=== PATIENT | female | born 1990 | race African-American/Black ===

== ENCOUNTER 2019-01-30 11:06 | Emergency (ER) | payer OTHER ==
[~2019-01-30] VITALS: Ht 162.6 cm; Wt 83.0 kg
[2019-01-30] MEDS ORDERED: ONDANSETRON HCL 4MG/2ML INJ IV STA (12:03)
[2019-01-30] MEDS ORDERED: SODIUM CHLORIDE 0.9% 1,000 ML IV ONE (12:03)
[2019-01-30 12:28] LABS: BASOPHILS % 0.8 % (0.0-2.0); EOSINOPHILS % 0.8 % (0.0-5.0); HEMATOCRIT. 39.8 % (36.0-48.0); HEMOGLOBIN. 13.3 g/dL (12.0-16.0); LYMPHOCYTES % 41.2 % (20.0-50.0); MEAN CORPUSCULAR HEMOGLOBIN 26.8 pg (28.0-32.0); MEAN CORPUSCULAR VOLUME 80.2 fL (81.0-99.0); MEAN PLATELET VOLUME 9.4 fl (7.4-10.4); MONOCYTES % 7.7 % (2.0-8.0); NEUTROPHILS % 49.5 % (40.0-76.0); PLATELET 273 x1000/uL (130-400); RED BLOOD CELL COUNT 4.97 mill/uL (4.2-5.4); RED CELL DISTRIBUTION WIDTH 13.9 % (11.6-14.6)
[2019-01-30 12:32] LABS: CHLORIDE 106 mEq/L (98-107)
[2019-01-30 12:37] LABS: CLARITY URINE CLEAR (CLEAR); COLOR URINE YELLOW (YELLOW); KETONES URINE NEGATIVE (NEGATIVE); LEUKOCYTE ESTERASE URINE NEGATIVE (NEGATIVE); NITRITE URINE NEGATIVE (NEGATIVE); OCCULT BLOOD URINE NEGATIVE (NEGATIVE); PH URINE 6.5 (4.5-8.0); PROTEIN URINE NEGATIVE (NEGATIVE); SPECIFIC GRAVITY URINE 1.002 (1.005-1.030); UROBILINOGEN URINE 0.2 E.U./dL (0.2-1.0)
[2019-01-30 13:37] VITALS: BP 112/63
== END 2019-01-30 14:13 | disposition home or self-care (01) ==
LOC: ER 11:06
DX: R42 Dizziness and giddiness (principal); R07.89 Other chest pain; R06.02 Shortness of breath
CPT/HCPCS: 36415; 71045; 80053; 81003; 81025; 83690; 85025; 85379; 93005; 96361; 96374; 99284; J2405; J7030

== ENCOUNTER 2019-03-27 14:26 | Emergency (ER) | payer OTHER ==
[~2019-03-27] VITALS: Ht 162.6 cm; Wt 73.0 kg
[2019-03-27] MEDS ORDERED: SODIUM CHLORIDE 0.9% 1,000 ML IV ONE (17:09)
[2019-03-27 17:45] LABS: BASOPHILS % 1.5 % (0.0-2.0); EOSINOPHILS % 3.3 % (0.0-5.0); HEMATOCRIT. 40.7 % (36.0-48.0); HEMOGLOBIN. 13.6 g/dL (12.0-16.0); LYMPHOCYTES % 40.5 % (20.0-50.0); MEAN CORPUSCULAR HEMOGLOBIN 26.4 pg (28.0-32.0); MEAN CORPUSCULAR VOLUME 79.2 fL (81.0-99.0); MEAN PLATELET VOLUME 8.6 fl (7.4-10.4); MONOCYTES % 6.1 % (2.0-8.0); NEUTROPHILS % 48.6 % (40.0-76.0); PLATELET 279 x1000/uL (130-400); RED BLOOD CELL COUNT 5.14 mill/uL (4.2-5.4); RED CELL DISTRIBUTION WIDTH 14.4 % (11.6-14.6)
[2019-03-27 17:49] LABS: CHLORIDE 106 mEq/L (98-107)
[2019-03-27 17:53] LABS: ETHANOL BLOOD < 10 mg/dL
[2019-03-27 17:58] LABS: CLARITY URINE CLEAR (CLEAR); COLOR URINE YELLOW (YELLOW); KETONES URINE NEGATIVE (NEGATIVE); LEUKOCYTE ESTERASE URINE NEGATIVE (NEGATIVE); NITRITE URINE NEGATIVE (NEGATIVE); OCCULT BLOOD URINE NEGATIVE (NEGATIVE); PH URINE 5.5 (4.5-8.0); PROTEIN URINE NEGATIVE (NEGATIVE); SPECIFIC GRAVITY URINE 1.006 (1.005-1.030); UROBILINOGEN URINE 0.2 E.U./dL (0.2-1.0)
[2019-03-27 18:12] LABS: *COCAINE SCREEN URINE NEGATIVE (NEGATIVE)
[2019-03-27 18:13] LABS: *AMPHETAMINES SCREEN URINE NEGATIVE (NEGATIVE); *BARBITURATES SCREEN URINE NEGATIVE (NEGATIVE); *BENZODIAZEPINES SCREEN URINE NEGATIVE (NEGATIVE); CANNABINOID URINE SCREEN NEGATIVE (NEGATIVE); METHADONE URINE SCREEN NEGATIVE (NEGATIVE); OPIATES URINE SCREEN NEGATIVE (NEGATIVE); PHENCYCLIDINE URINE SCREEN NEGATIVE (NEGATIVE)
[2019-03-27 18:14] LABS: HCG SCREEN NEGATIVE
[2019-03-27] MEDS ORDERED: FAMOTIDINE 20MG/2ML VIAL IV STA (18:14)
[2019-03-27] MEDS ORDERED: VISCOUS LIDOCAINE 2% 15 ML UDC MM STA (18:14)
[2019-03-27] MEDS ORDERED: MAGNESIUM/ALUMINUM HYDROXIDE/SIMETHICONE 30ML UDC PO STA (18:14)
[2019-03-27] MEDS ORDERED: ONDANSETRON HCL 4MG/2ML INJ IV STA (18:14)
[2019-03-27 23:20] VITALS: BP 115/76
== END 2019-03-27 23:38 | disposition home or self-care (01) ==
LOC: ER 14:26
DX: R10.13 Epigastric pain (principal); R07.89 Other chest pain
CPT/HCPCS: 36415; 71045; 80053; 80305; 80320; 81003; 81025; 83690; 83880; 84484; 84703; 85025; 93005; 96374; 96375; 99284; J2405; J3490; J7030; G0480

== ENCOUNTER 2019-05-31 15:51 | Emergency (ER) | payer OTHER ==
[~2019-05-31] VITALS: Ht 162.6 cm; Wt 80.0 kg
[2019-05-31] MEDS ORDERED: CETIRIZINE 10MG TABLET PO SCH (18:15)
[2019-05-31 19:30] VITALS: BP 116/74
== END 2019-05-31 20:21 | disposition home or self-care (01) ==
LOC: ER 15:51
DX: J18.9 Pneumonia, unspecified organism (principal); R09.81 Nasal congestion; R50.9 Fever, unspecified; R05 Cough; K21.9 Gastro-esophageal reflux disease without esophagitis
CPT/HCPCS: 71045; 81025; 87804; 99284

== ENCOUNTER 2019-08-21 16:19 | Emergency (ER) | payer OTHER ==
[~2019-08-21] VITALS: Ht 162.6 cm; Wt 74.0 kg
[2019-08-21 17:01] VITALS: BP 134/82
== END 2019-08-21 22:41 | disposition left against medical advice (07) ==
LOC: ER 16:19
DX: Z53.21 Procedure and treatment not carried out due to patient leaving prior to being seen by health care provider (principal)

== ENCOUNTER 2019-10-04 09:17 | Emergency (ER) | payer OTHER ==
[~2019-10-04] VITALS: Ht 162.6 cm; Wt 63.3 kg
[2019-10-04] MEDS ORDERED: FAMO-135 PO (09:30)
[2019-10-04] MEDS ORDERED: ONDANSETRON 4MG ODT PO STA (09:46)
[2019-10-04] MEDS ORDERED: DICYCLOMINE 10 MG/5 ML ORAL SYR PO STA (09:46)
[2019-10-04] MEDS ORDERED: VISCOUS LIDOCAINE 2% 15 ML UDC PO STA (09:46)
[2019-10-04] MEDS ORDERED: MAGNESIUM/ALUMINUM HYDROXIDE/SIMETHICONE 30ML UDC PO STA (09:46)
[2019-10-04 12:35] VITALS: BP 134/91
== END 2019-10-04 12:38 | disposition home or self-care (01) ==
LOC: ER 09:17
DX: K21.9 Gastro-esophageal reflux disease without esophagitis (principal); R07.89 Other chest pain
CPT/HCPCS: 71045; 93005; 99285; Q0162

== ENCOUNTER 2019-12-07 18:56 | Emergency (ER) | payer OTHER ==
[~2019-12-07] VITALS: Ht 162.6 cm; Wt 73.0 kg
[~2019-12-07 18:56] MED LIST: FAMO-135 PO
[2019-12-07] MEDS ORDERED: ONDANSETRON HCL 4MG/2ML INJ IV STA (19:12)
[2019-12-07] MEDS ORDERED: MORPHINE SULFATE 4 MG/ML CPJ (NOT FOR IM USE) IV STA (19:12)
[2019-12-07] MEDS ORDERED: FAMOTIDINE 20MG/2ML VIAL IV STA (19:12)
[2019-12-07] MEDS ORDERED: MAGNESIUM/ALUMINUM HYDROXIDE/SIMETHICONE 30ML UDC PO ONE (19:15)
[2019-12-07] MEDS ORDERED: DICYCLOMINE 10 MG/5 ML ORAL SYR PO ONE (19:15)
[2019-12-07] MEDS ORDERED: VISCOUS LIDOCAINE 2% 15 ML UDC PO ONE (19:15)
[2019-12-07 19:47] LABS: BASOPHILS % 1.1 % (0.0-2.0); CHLORIDE 107 mEq/L (98-107); EOSINOPHILS % 4.6 % (0.0-5.0); HEMATOCRIT. 38.9 % (36.0-48.0); HEMOGLOBIN. 13.6 g/dL (12.0-16.0); LYMPHOCYTES % 41.8 % (20.0-50.0); MEAN CORPUSCULAR HEMOGLOBIN 28.3 pg (28.0-32.0); MEAN CORPUSCULAR VOLUME 80.9 fL (81.0-99.0); MEAN PLATELET VOLUME 8.9 fl (7.4-10.4); MONOCYTES % 8.7 % (2.0-8.0); NEUTROPHILS % 43.8 % (40.0-76.0); PLATELET 236 x1000/uL (130-400); RED BLOOD CELL COUNT 4.81 mill/uL (4.2-5.4); RED CELL DISTRIBUTION WIDTH 14.2 % (11.6-14.6)
[2019-12-07 20:12] LABS: HCG SCREEN NEGATIVE
[2019-12-07 20:52] VITALS: BP 129/72
== END 2019-12-07 20:53 | disposition home or self-care (01) ==
LOC: ER 18:56
DX: K21.9 Gastro-esophageal reflux disease without esophagitis (principal); R03.0 Elevated blood-pressure reading, without diagnosis of hypertension
CPT/HCPCS: 36415; 71045; 80053; 84484; 84703; 85025; 93005; 96374; 96375; 99285; J2270; J2405; J3490

== ENCOUNTER 2020-01-24 19:04 | Emergency (ER) | payer OTHER ==
[~2020-01-24] VITALS: Ht 165.1 cm; Wt 74.0 kg
[2020-01-24] MEDS ORDERED: IBUPROFEN 600MG TABLET PO ONE (20:30)
[2020-01-24 21:25] VITALS: BP 120/79
== END 2020-01-24 21:28 | disposition home or self-care (01) ==
LOC: ER 19:04
DX: R07.89 Other chest pain (principal); M79.18 Myalgia, other site
CPT/HCPCS: 71045; 81025; 93005; 99283

== ENCOUNTER 2020-02-05 15:56 | Emergency (ER) | payer OTHER ==
[~2020-02-05] VITALS: Ht 165.1 cm; Wt 64.0 kg
[2020-02-05] MEDS ORDERED: IBUPROFEN 600MG TABLET PO ONE (16:30)
[2020-02-05 17:04] LABS: CLARITY URINE CLEAR (CLEAR); COLOR URINE YELLOW (YELLOW); KETONES URINE 1+ (NEGATIVE); LEUKOCYTE ESTERASE URINE 2+ (NEGATIVE); NITRITE URINE NEGATIVE (NEGATIVE); OCCULT BLOOD URINE 3+ (NEGATIVE); PROTEIN URINE TRACE (NEGATIVE); SPECIFIC GRAVITY URINE 1.019 (1.005-1.030); UROBILINOGEN URINE 0.2 E.U./dL (0.2-1.0)
[2020-02-05] MEDS ORDERED: SODIUM CHLORIDE 0.9% 1,000 ML IV ONE (17:23)
[2020-02-05 17:33] LABS: BASOPHILS % 0.6 % (0.0-2.0); EOSINOPHILS % 1.1 % (0.0-5.0); HEMATOCRIT. 38.2 % (36.0-48.0); HEMOGLOBIN. 13.2 g/dL (12.0-16.0); LYMPHOCYTES % 26.4 % (20.0-50.0); MEAN CORPUSCULAR VOLUME 81.1 fL (81.0-99.0); MEAN PLATELET VOLUME 9.6 fl (7.4-10.4); MONOCYTES % 4.7 % (2.0-8.0); NEUTROPHILS % 67.2 % (40.0-76.0); PLATELET 275 x1000/uL (130-400); RED BLOOD CELL COUNT 4.71 mill/uL (4.2-5.4); RED CELL DISTRIBUTION WIDTH 14.1 % (11.6-14.6)
[2020-02-05 17:40] LABS: CHLORIDE 105 mEq/L (98-107)
[2020-02-05] MEDS ORDERED: ACETAMINOPHEN WITH CODEINE 300/30MG TABLET PO ONE (18:30)
[2020-02-05] MEDS ORDERED: MAGNESIUM/ALUMINUM HYDROXIDE/SIMETHICONE 30ML UDC PO STA (19:16)
[2020-02-05] MEDS ORDERED: VISCOUS LIDOCAINE 2% 15 ML UDC PO STA (19:16)
[2020-02-05 19:52] VITALS: BP 117/74
== END 2020-02-05 19:52 | disposition home or self-care (01) ==
LOC: ER 15:56
DX: R05 Cough (principal); R43.9 Unspecified disturbances of smell and taste; R06.02 Shortness of breath; Z20.828 Contact with and (suspected) exposure to other viral communicable diseases; R53.83 Other fatigue; R10.13 Epigastric pain
CPT/HCPCS: 36415; 71045; 80053; 81003; 81025; 83690; 85025; 93005; 96360; 99285; C9803; J7030; U0003

== ENCOUNTER 2020-12-25 12:43 | Emergency (ER) | payer SELFPAY ==
[~2020-12-25] VITALS: Ht 162.6 cm; Wt 73.0 kg
[2020-12-25] MEDS ORDERED: KETOROLAC 60MG/2ML VIAL IM ONE (13:15)
[2020-12-25 13:44] VITALS: BP 122/80
[2020-12-25 14:02] LABS: CHLORIDE 108 mEq/L (98-107)
[2020-12-25 14:07] LABS: BASOPHILS % 1.2 % (0.0-2.0); EOSINOPHILS % 1.4 % (0.0-5.0); HEMOGLOBIN. 14.1 g/dL (12.0-16.0); LYMPHOCYTES % 52.7 % (20.0-50.0); MEAN CORPUSCULAR HEMOGLOBIN 25.6 pg (28.0-32.0); MEAN CORPUSCULAR VOLUME 74.6 fL (81.0-99.0); MEAN PLATELET VOLUME 8.7 fl (7.4-10.4); MONOCYTES % 8.2 % (2.0-8.0); NEUTROPHILS % 36.5 % (40.0-76.0); PLATELET 246 x1000/uL (130-400); RED CELL DISTRIBUTION WIDTH 16.6 % (11.6-14.6)
[2020-12-25 14:20] LABS: CLARITY URINE CLEAR (CLEAR); COLOR URINE YELLOW (YELLOW); KETONES URINE NEGATIVE (NEGATIVE); LEUKOCYTE ESTERASE URINE NEGATIVE (NEGATIVE); NITRITE URINE NEGATIVE (NEGATIVE); OCCULT BLOOD URINE NEGATIVE (NEGATIVE); PROTEIN URINE NEGATIVE (NEGATIVE); SPECIFIC GRAVITY URINE 1.012 (1.005-1.030); UROBILINOGEN URINE 0.2 E.U./dL (0.2-1.0)
[2020-12-25] MEDS ORDERED: IBUP-2028 MT (16:12)
[2020-12-25] MEDS ORDERED: FAMO-135 MT (16:12)
== END 2020-12-25 17:00 | disposition home or self-care (01) ==
LOC: ER 12:43
DX: D25.9 Leiomyoma of uterus, unspecified (principal)
CPT/HCPCS: 36415; 76830; 76856; 80053; 81003; 81025; 83690; 85025; 96372; 99284; J1885